=== PATIENT | male | born 1960 | race Caucasian/White ===

== ENCOUNTER 2020-08-19 21:01 | Emergency (ER) | payer OTHER ==
[~2020-08-19] VITALS: Ht 180.3 cm; Wt 127.0 kg
[2020-08-19 22:06] VITALS: BP 104/66
[2020-08-20] MEDS ORDERED: HYDROcodone-ACET 10/325MG TAB PO ONE (00:45)
== END 2020-08-20 04:23 | disposition left against medical advice (07) ==
LOC: ER 21:03
DX: S32.021A Stable burst fracture of second lumbar vertebra, initial encounter for closed fracture (principal); S32.031A Stable burst fracture of third lumbar vertebra, initial encounter for closed fracture; S32.009A Unspecified fracture of unspecified lumbar vertebra, initial encounter for closed fracture; M45.6 Ankylosing spondylitis lumbar region; I11.0 Hypertensive heart disease with heart failure; I50.9 Heart failure, unspecified; W19.XXXA Unspecified fall, initial encounter; Y93.89 Activity, other specified; Y92.89 Other specified places as the place of occurrence of the external cause; Y99.8 Other external cause status
CPT/HCPCS: 70450; 72131

== ENCOUNTER 2021-08-19 16:38 | Emergency (ER) | payer BC, MEDICAID ==
[~2021-08-19] VITALS: Ht 180.3 cm; Wt 122.9 kg
[~2021-08-19 16:38] MED LIST: ALBU108A5 INH; ALLO100T PO; ASCO500T11 PO; CHOL20007 PO; CYCL-611 PO; FLUT44AE INH; FUR20T PO; GABA300C10 PO; HYDR1TAB97 PO; METO2.5T PO; OMEG100078 PO; SIMV-8 PO; TAMS0.4C36 PO; WARF4TAB33 PO
[2021-08-19 17:12] VITALS: BP 112/50
== END 2021-08-19 19:14 | disposition left against medical advice (07) ==
LOC: ER 16:38
DX: I95.9 Hypotension, unspecified (principal); Z53.21 Procedure and treatment not carried out due to patient leaving prior to being seen by health care provider
CPT/HCPCS: 93005